=== PATIENT | female | born 1965 | race Caucasian/White ===

== ENCOUNTER 2019-07-13 09:59 | Inpatient (IN) | payer OTHER, BC ==
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
[~2019-07-13 09:59] MED LIST: Acetaminophen 325 MG Tab PO SCH; Bisacodyl 5 MG Tab PO PRN; Lactated Ringers 1,000 ML IV SCH; Lidocaine 1%/Sod Bicarbonate in NS 8.4% 1 ML Syringe IDERM PRN; Morphine 2 MG/ML SYRINGE IVPUSH PRN; Morphine 8 MG, EPINEPHrine 0.3 MG, Cefuroxime 750 MG, Ketorolac 30 MG, Sodium Chloride ... ONE; Naloxone 0.4 MG/ML SDV IVPUSH PRN; Ondansetron 4 MG/2 ML SDV IVPUSH PRN; Pregabalin 25 MG Cap PO SCH; Ropivacaine 0.5% 5 MG/ML 30 ML SDV ONE; Sodium Chloride 0.9% 10 ML Syringe FLUSH PRN; oxyCODONE ER 10 MG TAB.ER PO SCH
[2019-07-13] MEDS ORDERED: Ketorolac 30 MG/ML SDV ONE (10:49)
[2019-07-13] MEDS ORDERED: Propofol 200 MG/20 ML SDV ONE (10:49)
[2019-07-13] MEDS ORDERED: Lactated Ringers 1,000 ML ONE (10:49)
[2019-07-13] MEDS ORDERED: fentaNYL 100 MCG/2 ML SDV ONE (10:49)
[2019-07-13] MEDS ORDERED: Ondansetron 4 MG/2 ML SDV ONE (10:49)
[2019-07-13] MEDS ORDERED: Midazolam 1 MG/ML 2 ML SDV ONE ×2 (10:49→12:09)
[2019-07-13] MEDS ORDERED: ceFAZolin 1 GM Vial ONE ×2 (10:49→11:01)
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
[2019-07-13] MEDS ORDERED: Bupivacaine 0.25% 10 ML SDV ONE (11:01)
[2019-07-13] MEDS ORDERED: Iodine/Sodium Iodide 2% Tincture 30 ML Bottle ONE (11:01)
[2019-07-13] MEDS ORDERED: Vancomycin 1 GM SDV ONE (11:01)
[2019-07-13] MEDS ORDERED: Phenylephrine/Normal Saline 100 MCG/ML 10 ML Syringe ONE (12:52)
[2019-07-13] MEDS ORDERED: fentaNYL 100 MCG/2 ML SDV IVPUSH PRN (13:50)
--- NOTE | 2019-07-13 13:52 | PCM.POSTAN ---
POST ANESTHESIA ASSESSMENT - MENTAL STATUS Mental Status: Alert, Oriented - VITAL SIGNS Vital Signs: Last Vital Signs Temp 36.5 C 07/13/19 10:15 Pulse 78 07/13/19 10:15 Resp 16 07/13/19 10:15 BP 113/67 07/13/19 10:15 Pulse Ox 98 07/13/19 10:15 - RESPIRATORY Respiratory Status: Respiratory Rate WNL, Airway Patent, O2 Saturation Stable, Supplemental Oxygen - CARDIOVASCULAR CV Status: Pulse Rate WNL, Blood Pressure Stable - GASTROINTESTINAL GI Status: No Symptoms - PAIN Pain Score: 0 - POST OP HYDRATION Hydration Status: Adequate & Stable
--- NOTE | 2019-07-13 14:42 | PCM.SN ---
- Free Text/Narrative Note: Left selective femoral nerve block at the adductor canal for post-procedure pain control under US guidance requested by Dr. Martinez. Time Out: 1422 Start: 1422 End: 1428 Chart reviewed. Consent signed. Questions answered. Appropriate monitors applied. Time out performed. Left mid-shaft femur identified with ultrasound, scanning medially of femur, the femoral artery in the adductor canal visualized , and the femoral nerve located laterally to the artery. The skin was prepped lateral to the ultrasound probe with chlorahexadine times two. The 21ga 4 insulated block needle was inserted under direct ultrasound guidance into the adductor canal. 20mL of 0.5% ropivacaine with 1:200,000 epinephrine was injected circumferentially around the nerve with intermittent negative aspiration noted. Patient tolerated the procedure well. Sterile technique noted along with sterile gloves, mask, and sterile probe cover. See picture on progress note and vital signs on nurses notes. Block completed in PACU. Klever Benavidez CRNA
--- NOTE | 2019-07-13 15:30 | CR ---
Left knee: AP and lateral views of the left knee were obtained. Comparison: No prior left knee exam. Knee prosthesis is seen. Components are aligned. Soft tissue air is noted from surgical procedure. Underlying bony structures are intact. Slight deformity of the proximal fibula seen most likely due to old healed fracture. Impression: 1. Satisfactory postop radiographic appearance of recently placed left knee prosthesis. Diagnostic code #2 This report was dictated in [place] Standard Time
[2019-07-13] MEDS: Potassium Chloride 20 MEQ Tab.ER PO SCH ×2 (15:31→20:24)
[2019-07-13] MEDS ORDERED: Scopolamine 1.5 MG Transdermal Patch TOP ONE (15:35)
[2019-07-13] MEDS ORDERED: Ketorolac 15 MG/ML SDV IVPUSH PRN (17:00)
[2019-07-13] MEDS: Acetaminophen/oxyCODONE 325-5 MG Tab PO PRN (17:10)
[2019-07-13] MEDS: ceFAZolin 2 GM in Premix Bag 1 BAG IV SCH (18:24)
[2019-07-13] MEDS: Docusate Sodium 100 MG Cap PO SCH (20:25)
[2019-07-13] MEDS: Cyclobenzaprine 10 MG Tab PO PRN (20:47)
[2019-07-13] MEDS ORDERED: Famotidine 20 MG Tab PO SCH (21:00)
[2019-07-13] MEDS ORDERED: Sennosides 8.6 MG Tab PO PRN (21:00)
[2019-07-13] MEDS ORDERED: Magnesium Hydroxide 400 MG/5 ML Susp 30 ML Cup PO PRN (21:00)
[2019-07-14] MEDS: ceFAZolin 2 GM in Premix Bag 1 BAG IV SCH ×2 (03:47→10:14)
--- NOTE | 2019-07-14 07:02 | PCM.CONSN ---
- General Info Date of Service: 07/14/19 Admission Dx/Problem (Free Text): Admission Diagnosis/Problem Admission Diagnosis/Problem Osteoarthritis of knee Functional Status: Reports: Pain Controlled, Tolerating Diet, Ambulating, Urinating, Incentive Spirometry. Denies: New Symptoms - Review of Systems General: Reports: No Symptoms. Denies: Fever, Chills HEENT: Reports: No Symptoms. Denies: Headaches, Sore Throat Pulmonary: Reports: No Symptoms. Denies: Shortness of Breath, Cough, Sputum, Wheezing Cardiovascular: Reports: No Symptoms. Denies: Chest Pain, Palpitations Gastrointestinal: Reports: No Symptoms. Denies: Abdominal Pain, Constipation, Diarrhea, Nausea, Vomiting Genitourinary: Reports: No Symptoms. Denies: Pain Musculoskeletal: Reports: Leg Pain Skin: Reports: No Symptoms. Denies: Cyanosis Neurological: Reports: Difficulty Walking, Gait Disturbance. Denies: Confusion , Pre-Existing Deficit Psychiatric: Reports: No Symptoms - Patient Data Vitals - Most Recent: Last Vital Signs Temp 97.6 F 07/13/19 14:40 Pulse 70 07/13/19 18:17 Resp 17 07/13/19 14:40 BP 114/69 07/13/19 18:17 Pulse Ox 100 07/13/19 18:17 Weight - Most Recent: 209 lb 6.4 oz I&O - Last 24 Hours: Intake & Output 07/13/19 07/14/19 07/14/19 22:59 06:59 14:59 Intake Total 320 500 Output Total 225 Balance 320 275 Lab Results Last 24 Hours: Laboratory Results - last 24 hr 07/13/19 07/13/19 07/14/19 Range/Units 10:45 10:46 00:00 WBC (3.98-10.04) K/mm3 RBC (3.98-5.22) M/mm3 Hgb (11.2-15.7) gm/dl Hct (34.1-44.9) % MCV (79.4-94.8) fl MCH (25.6-32.2) pg MCHC (32.2-35.5) g/dl RDW Std Deviation (36.4-46.3) fL Plt Count (182-369) K/mm3 MPV (9.4-12.3) fl APTT 23 (22-31) SECONDS POC Glucose 98 148 H (70-105) mg/dL 07/14/19 Range/Units 05:25 WBC 9.85 (3.98-10.04) K/mm3 RBC 4.22 (3.98-5.22) M/mm3 Hgb 13.0 (11.2-15.7) gm/dl Hct 39.9 (34.1-44.9) % MCV 94.5 (79.4-94.8) fl MCH 30.8 (25.6-32.2) pg MCHC 32.6 (32.2-35.5) g/dl RDW Std Deviation 44.3 (36.4-46.3) fL Plt Count 220 (182-369) K/mm3 MPV 10.4 (9.4-12.3) fl APTT (22-31) SECONDS POC Glucose (70-105) mg/dL Med Orders - Current: Current Medications Bisacodyl (Dulcolax) 5 mg PO DAILY PRN PRN Reason: Constipation Cholecalciferol (Vitamin D3) 5,000 unit PO DAILY [facility] Cyclobenzaprine HCl (Flexeril) 10 mg PO TID PRN PRN Reason: Spasms Last Admin: 07/13/19 20:47 Dose: 10 mg Docusate Sodium (Colace) 100 mg PO BID [facility] Last Admin: 07/13/19 20:25 Dose: 100 mg Famotidine (Pepcid) 20 mg PO Q12H [facility] Last Admin: 07/13/19 20:25 Dose: 20 mg Cefazolin Sodium/Dextrose 2 gm (/ Premix) 50 mls @ 100 mls/hr IV Q8H [facility] Stop: 07/14/19 11:29 Last Admin: 07/14/19 03:47 Dose: 100 mls/hr Ketorolac Tromethamine (Toradol) 15 mg IVPUSH Q6H PRN PRN Reason: Pain Last Admin: 07/13/19 23:26 Dose: 15 mg Magnesium Hydroxide (Milk Of Magnesia) 30 ml PO BID PRN PRN Reason: Constipation Miscellaneous Information (Remove Patch) 0 ea TRDERM ONETIME ONE Stop: 07/16/19 15:46 Morphine Sulfate (Morphine) 2 mg IVPUSH Q2H PRN PRN Reason: Breakthrough Pain Naloxone HCl (Narcan) 0.1 mg IVPUSH Q5M PRN PRN Reason: Oversedation Ondansetron HCl (Zofran) 4 mg IVPUSH Q6H PRN PRN Reason: Nausea/Vomiting Oxycodone/Acetaminophen (Percocet 325-5 Mg) 1 - 2 tab PO Q4H PRN PRN Reason: Pain Last Admin: 07/13/19 17:10 Dose: 1 tab Lidocaine/Prilocaine (Cream) 0 each TOP TID PRN PRN Reason: Pain Potassium Chloride (Klor-Con M20) 20 meq PO TID [facility] Last Admin: 07/13/19 20:24 Dose: 20 meq Rivaroxaban (Xarelto) 10 mg PO DAILY [facility] Senna (Senna) 8.6 mg PO BID PRN PRN Reason: Constipation Discontinued Medications Acetaminophen (Tylenol) 975 mg PO ONETIME [facility] Stop: 07/13/19 12:00 Last Admin: 07/13/19 10:38 Dose: 975 mg Bupivacaine HCl (Sensorcaine-Mpf 0.25%) Confirm Administered Dose 30 ml .ROUTE .STK-MED ONE Stop: 07/13/19 11:02 Last Admin: 07/13/19 13:08 Dose: 30 ml Cefazolin Sodium (Ancef) Confirm Administered Dose 2 gm .ROUTE .STK-MED ONE Stop: 07/13/19 10:50 Last Admin: 07/13/19 13:05 Dose: 2 gm Cefazolin Sodium (Ancef) Confirm Administered Dose 2 gm .ROUTE .STK-MED ONE Stop: 07/13/19 11:02 Morphine Sulfate 8 mg/Epinephrine HCl 0.3 mg/Cefuroxime Sodium 750 mg/Ketorolac Tromethamine 30 mg/Sodium Chloride 27.9 ml 0 mg .XX ONETIME ONE Stop: 07/13/19 09:01 Last Admin: 07/13/19 13:08 Dose: 788.3 mg Fentanyl (Sublimaze) Confirm Administered Dose 100 mcg .ROUTE .STK-MED ONE Stop: 07/13/19 10:50 Fentanyl (Sublimaze) 50 mcg IVPUSH Q5M PRN PRN Reason: pain Stop: 07/13/19 15:00 Lactated Ringer's (Ringers, Lactated) 1,000 mls @ 125 mls/hr IV ASDIRECTED [facility] Stop: 07/13/19 23:00 Last Admin: 07/13/19 11:13 Dose: 125 mls/hr Lactated Ringer's (Ringers, Lactated) Confirm Administered Dose 1,000 mls @ as directed .ROUTE .[facility]-MED ONE Stop: 07/13/19 10:50 Iodine (Iodine 2% Mild Tincture) Confirm Administered Dose 30 ml .ROUTE .[facility]- MED ONE Stop: 07/13/19 11:02 Last Admin: 07/13/19 13:03 Dose: 18 ml Ketorolac Tromethamine (Toradol) Confirm Administered Dose 30 mg .ROUTE .ST- MED ONE Stop: 07/13/19 10:50 Lidocaine/Sodium Bicarbonate (Buffered Lidocaine 1% In Ns 8.4%) 0.25 ml IDERM ONETIME PRN PRN Reason: Prior to IV Start Stop: 07/13/19 18:00 Last Admin: 07/13/19 11:13 Dose: 0.25 ml Midazolam HCl (Versed 1 Mg/Ml) Confirm Administered Dose 2 mg .ROUTE .[facility]-MED ONE Stop: 07/13/19 10:50 Midazolam HCl (Versed 1 Mg/Ml) Confirm Administered Dose 2 mg .ROUTE .ST-MED ONE Stop: 07/13/19 12:10 Ondansetron HCl (Zofran) Confirm Administered Dose 4 mg .ROUTE .ST-MED ONE Stop: 07/13/19 10:50 Oxycodone HCl (Oxycontin) 10 mg PO ONETIME [facility] Stop: 07/13/19 12:00 Last Admin: 07/13/19 10:38 Dose: 10 mg Phenylephrine HCl (Phenylephrine In Ns 100 Mcg/Ml) Confirm Administered Dose 1 mg .ROUTE .ST-MED ONE Stop: 07/13/19 12:53 Pregabalin (Lyrica) 50 mg PO ONETIME [facility] Stop: 07/13/19 12:00 Last Admin: 07/13/19 10:39 Dose: 50 mg Propofol (Diprivan 20 Ml) Confirm Administered Dose 600 mg .ROUTE .ST-MED ONE Stop: 07/13/19 10:50 Ropivacaine (Naropin 0.5%) Confirm Administered Dose 30 ml .ROUTE .ST-MED ONE Stop: 07/13/19 07:56 Scopolamine (Transderm-Scop) 1.5 mg TOP ONETIME ONE Stop: 07/13/19 15:36 Last Admin: 07/13/19 15:42 Dose: 1.5 mg Sodium Chloride (Saline Flush) 10 ml FLUSH ASDIRECTED PRN PRN Reason: Keep Vein Open Stop: 07/13/19 18:00 Tranexamic Acid (Cyklokapron) Confirm Administered Dose 1,000 mg .ROUTE .STK- MED ONE Stop: 07/13/19 11:02 Last Admin: 07/13/19 13:14 Dose: 1,000 mg Vancomycin HCl (Vancomycin) Confirm Administered Dose 1 gm .ROUTE .STK-MED ONE Stop: 07/13/19 11:02 Last Admin: 07/13/19 13:11 Dose: 1 gm - Exam Quality Assessment: DVT Prophylaxis. No: Supplemental Oxygen, Urine Catheter General: Alert, Oriented, Cooperative HEENT: Pupils Equal, Pupils Reactive, Mucous Membr. Moist/[place]anquillity Neck: Supple, Trachea Midline Lungs: Clear to Auscultation, Normal Respiratory Effort Cardiovascular: Regular Rate, Regular Rhythm GI/Abdominal Exam: Normal Bowel Sounds, Soft, Non-Tender, No Distention, No Abnormal Bruit (Female) Exam: Deferred Back Exam: Normal Inspection, Full Range of Motion Extremities: Normal Capillary Refill, Leg Pain, Limited Range of Motion, Other ( Bandage in place on left leg. Coolng pack in place. ) Peripheral Pulses: 2+: Radial (L), Radial (R), Dorsalis Pedis (L), Dorsalis Pedis (R) Skin: Warm, Dry, Intact Wound/Incisions: Dressing Dry and Intact Neurological: No New Focal Deficit Psy/Mental Status: Alert, Normal Affect, Normal Mood Sepsis Event Note - Evaluation Sepsis Screening Result: No Definite Risk Consult PN Assessment/Plan POD#: 1 Procedures: Procedures ANTI-PHOSPHOLIPID ANTIBODY (01/19/15) ANTITHROMBIN III ANTIGEN (01/19/15) ASSAY GLUCOSE BLOOD QUANT (03/09/16) ASSAY OF ESTRADIOL (09/24/17) ASSAY OF GONADOTROPIN (FSH) (09/24/17) ASSAY OF PREALBUMIN (06/22/19) ASSAY OF SERUM ALBUMIN (06/22/19) ASSAY OF SERUM POTASSIUM (12/22/14) ASSAY THYROID STIM HORMONE (02/10/19) BETA-2 GLYCOPROTEIN ANTIBODY (01/19/15) C-REACTIVE PROTEIN (09/03/16) KIRA DNA DIR PROBE (12/03/17) CARDIOLIPIN ANTIBODY EA IG (01/19/15) COLONOSCOPY AND BIOPSY (10/12/14) COLONOSCOPY W/LESION REMOVAL (06/09/15) COMP SCREEN MAMMOGRAM ADD-ON (10/10/15) COMPLETE CBC W/AUTO DIFF WBC (06/22/19) COMPREHEN METABOLIC PANEL (02/10/19) CT ABD & PELV W/CONTRAST (05/03/15) CULTURE AEROBIC IDENTIFY (04/16/17) CULTURE OTHR SPECIMN AEROBIC (06/22/19) DIAGNOSTIC COLONOSCOPY (02/05/17) EMERGENCY DEPT VISIT (08/26/16) EXTREMITY STUDY (05/03/15) F2 GENE (01/19/15) F5 GENE (01/19/15) MACK VAG DNA DIR PROBE (12/03/17) GLYCOSYLATED HEMOGLOBIN TEST (06/22/19) JAK2 GENE (01/19/15) KNEE ARTHROSCOPY/SURGERY (12/24/18) LIPID PANEL (02/10/19) METABOLIC PANEL TOTAL CA (06/22/19) MICROBE SUSCEPTIBLE NIESHA (04/16/17) OT EVALUATION (11/23/15) PROTHROMBIN TIME (06/22/19) REDUCTION OF LARGE BREAST (07/27/16) ROUTINE VENIPUNCTURE (06/22/19) SCR MAMMO BI INCL CAD (08/14/18) TISSUE EXAM BY PATHOLOGIST (10/12/14) TRICHOMONAS VAGIN DIR PROBE (12/03/17) URINALYSIS AUTO W/SCOPE (03/30/19) URINE BACTERIA CULTURE (04/16/17) URINE CULTURE/COLONY COUNT (03/30/19) US EXAM ABDO BACK WALL BEE (12/07/13) X-RAY EXAM CHEST 2 VIEWS (06/22/19) X-RAY EXAM KNEE 4 OR MORE (09/27/15) X-RAY EXAM OF KNEE 1 OR 2 (02/11/18) X-RAY EXAM OF KNEE 3 (06/05/17) X-RAY EXAM OF LOWER LEG (05/23/15) X-RAY EXAM THORAC SPINE 3VWS (11/09/16) (1) S/P total knee arthroplasty SNOMED Code(s): 0506539473272, 619879937, 4781075996133 Code(s): Z96.659 - PRESENCE OF UNSPECIFIED ARTIFICIAL KNEE JOINT Priority: High Current Visit: Yes Qualifiers: Laterality: left Qualified Code(s): Z96.652 - Presence of left artificial knee joint (2) Osteoarthritis SNOMED Code(s): 713764759 Code(s): M19.90 - UNSPECIFIED OSTEOARTHRITIS, UNSPECIFIED SITE Priority: High Current Visit: Yes Qualifiers: Osteoarthritis location: knee Osteoarthritis type: primary Laterality: left Qualified Code(s): M17.12 - Unilateral primary osteoarthritis, left knee (3) HTN (hypertension) SNOMED Code(s): 70749902 Code(s): I10 - ESSENTIAL (PRIMARY) HYPERTENSION Priority: Medium Current Visit: No Qualifiers: Hypertension type: unspecified Qualified Code(s): I10 - Essential (primary ) hypertension (4) Obesity (BMI 30.0-34.9) SNOMED Code(s): 093846845474253 Code(s): E66.9 - OBESITY, UNSPECIFIED Priority: Low Current Visit: No (5) RLS (restless legs syndrome) SNOMED Code(s): 33259734 Code(s): G25.81 - RESTLESS LEGS SYNDROME Priority: Medium Current Visit: No (6) Memory changes SNOMED Code(s): 952924443 Code(s): R41.3 - OTHER AMNESIA Priority: Low Current Visit: No (7) Pre-diabetes SNOMED Code(s): 780475926 Code(s): R73.03 - PREDIABETES Priority: Medium Current Visit: No (8) History of DVT (deep vein thrombosis) SNOMED Code(s): 441054227 Code(s): Z86.718 - PERSONAL HISTORY OF OTHER VENOUS THROMBOSIS AND EMBOLISM Priority: Low Current Visit: No (9) Complex regional pain syndrome affecting both upper arms SNOMED Code(s): 229851418, 073982090 Code(s): G90.513 - COMPLEX REGIONAL PAIN SYNDROME I OF UPPER LIMB, BILATERAL Priority: Medium Current Visit: No (10) Hypokalemia SNOMED Code(s): 95748855 Code(s): E87.6 - HYPOKALEMIA Priority: Low Current Visit: No (11) Edema SNOMED Code(s): 192618352, 183084948 Code(s): R60.9 - EDEMA, UNSPECIFIED Priority: Medium Current Visit: No Qualifiers: Edema type: unspecified Qualified Code(s): R60.9 - Edema, unspecified (12) Insomnia SNOMED Code(s): 141614940 Code(s): G47.00 - INSOMNIA, UNSPECIFIED Priority: Medium Current Visit: No Qualifiers: Insomnia type: unspecified Qualified Code(s): G47.00 - Insomnia, unspecified (13) Recurrent UTI SNOMED Code(s): 467340402 Code(s): N39.0 - URINARY TRACT INFECTION, SITE NOT SPECIFIED Priority: Low Current Visit: No (14) Peripheral neuropathy SNOMED Code(s): 921689352 Code(s): G62.9 - POLYNEUROPATHY, UNSPECIFIED Priority: Low Current Visit : No Qualifiers: Peripheral neuropathy type: polyneuropathy, unspecified Qualified Code(s): G62.9 - Polyneuropathy, unspecified Problem List Initiated/Reviewed/Updated: Yes Plan: I/P: Acute: S/P left total knee arthroplasty - post-operative day 1 -DVT prophylaxis and pain management per primary care team -PT/OT -IS/RT -Monitor oxygen saturation -Titrate oxygen as needed -Home medications reviewed -Vital signs stable -Monitor labs -Pre-operative Hgb was 14.3; Now 13.0 -Pre-operative GFR was 57.6; Now 58 -Pre-operative potassium was 3.4; Now 4.0 -Pre-operative A1C was 6.27% Osteoarthritis of left knee -Pain management per primary care team Chronic: HTN Obesity RLS Memory changes Abdominal thrombus Pre-DM DVT Chronic regional pain syndrome of the upper extremities Hypokalemia Right lower extremity edema OA Insomnia abnormal gait cholelithiasis recurrent UTIs peripheral neuropathy Plan: CM for discharge planning GI prophylaxis Home medications as indicated Other orders as listed above Routine AM labs She is a full code. Her PCP is Pamela Hanna PA-C From a hospitalist standpoint Cindy is doing well. She has been up ambulating and working with therapies. She is off of oxygen and has urinated. She has been utilizing her IS. Her labs and vital signs remain stable. She has been eating without difficulty. She is cleared for discharge pending primary team and PT/OT agreement. Thank you for allowing us to participate in the care of this patient!!
--- NOTE | 2019-07-14 07:16 | PCM.SURGPN ---
- General Info Date of Service: 07/14/19 POD#: 1 Functional Status: Reports: Pain Controlled, Tolerating Diet, Ambulating, Urinating, Incentive Spirometry, Other (The pt states she notes a popping sensation at posterolateral left knee with ambulation.) - Patient Data Vitals - Most Recent: Last Vital Signs Temp 97.6 F 07/13/19 14:40 Pulse 70 07/13/19 18:17 Resp 17 07/13/19 14:40 BP 114/69 07/13/19 18:17 Pulse Ox 100 07/13/19 18:17 Weight - Most Recent: 209 lb 6.4 oz I&O - Last 24 Hours: Intake & Output 07/13/19 07/14/19 07/14/19 22:59 06:59 14:59 Intake Total 320 500 Output Total 225 Balance 320 275 Lab Results Last 24 Hrs: Laboratory Results - last 24 hr 07/13/19 07/13/19 07/14/19 Range/Units 10:45 10:46 00:00 WBC (3.98-10.04) K/mm3 RBC (3.98-5.22) M/mm3 Hgb (11.2-15.7) gm/dl Hct (34.1-44.9) % MCV (79.4-94.8) fl MCH (25.6-32.2) pg MCHC (32.2-35.5) g/dl RDW Std Deviation (36.4-46.3) fL Plt Count (182-369) K/mm3 MPV (9.4-12.3) fl APTT 23 (22-31) SECONDS Sodium (136-145) mEq/L Potassium (3.5-5.1) mEq/L Chloride (98-107) mEq/L Carbon Dioxide (21-32) mEq/L Anion Gap (5-15) BUN (7-18) mg/dL Creatinine (0.55-1.02) mg/dL Est Cr Clr Drug Dosing mL/min Estimated GFR (MDRD) (>60) mL/min BUN/Creatinine Ratio (14-18) Glucose (74-106) mg/dL POC Glucose 98 148 H (70-105) mg/dL Calcium (8.5-10.1) mg/dL Total Bilirubin (0.2-1.0) mg/dL AST (15-37) U/L ALT (14-59) U/L Alkaline Phosphatase (46-116) U/L Total Protein (6.4-8.2) g/dl Albumin (3.4-5.0) g/dl Globulin gm/dL Albumin/Globulin Ratio (1-2) 07/14/19 07/14/19 Range/Units 05:25 05:25 WBC 9.85 (3.98-10.04) K/mm3 RBC 4.22 (3.98-5.22) M/mm3 Hgb 13.0 (11.2-15.7) gm/dl Hct 39.9 (34.1-44.9) % MCV 94.5 (79.4-94.8) fl MCH 30.8 (25.6-32.2) pg MCHC 32.6 (32.2-35.5) g/dl RDW Std Deviation 44.3 (36.4-46.3) fL Plt Count 220 (182-369) K/mm3 MPV 10.4 (9.4-12.3) fl APTT (22-31) SECONDS Sodium 139 (136-145) mEq/L Potassium 4.0 (3.5-5.1) mEq/L Chloride 103 (98-107) mEq/L Carbon Dioxide 29 (21-32) mEq/L Anion Gap 11.0 (5-15) BUN 19 H (7-18) mg/dL Creatinine 1.0 (0.55-1.02) mg/dL Est Cr Clr Drug Dosing 59.51 mL/min Estimated GFR (MDRD) 58 (>60) mL/min BUN/Creatinine Ratio 19.0 H (14-18) Glucose 124 H (74-106) mg/dL POC Glucose (70-105) mg/dL Calcium 8.5 (8.5-10.1) mg/dL Total Bilirubin 0.4 (0.2-1.0) mg/dL AST 24 (15-37) U/L ALT 27 (14-59) U/L Alkaline Phosphatase 60 (46-116) U/L Total Protein 5.9 L (6.4-8.2) g/dl Albumin 3.1 L (3.4-5.0) g/dl Globulin 2.8 gm/dL Albumin/Globulin Ratio 1.1 (1-2) Med Orders - Current: Current Medications Bisacodyl (Dulcolax) 5 mg PO DAILY PRN PRN Reason: Constipation Cholecalciferol (Vitamin D3) 5,000 unit PO DAILY [facility] Cyclobenzaprine HCl (Flexeril) 10 mg PO TID PRN PRN Reason: Spasms Last Admin: 07/13/19 20:47 Dose: 10 mg Docusate Sodium (Colace) 100 mg PO BID [facility] Last Admin: 07/13/19 20:25 Dose: 100 mg Famotidine (Pepcid) 20 mg PO Q12H [facility] Last Admin: 07/13/19 20:25 Dose: 20 mg Cefazolin Sodium/Dextrose 2 gm (/ Premix) 50 mls @ 100 mls/hr IV Q8H [facility] Stop: 07/14/19 11:29 Last Admin: 07/14/19 03:47 Dose: 100 mls/hr Ketorolac Tromethamine (Toradol) 15 mg IVPUSH Q6H PRN PRN Reason: Pain Last Admin: 07/13/19 23:26 Dose: 15 mg Magnesium Hydroxide (Milk Of Magnesia) 30 ml PO BID PRN PRN Reason: Constipation Miscellaneous Information (Remove Patch) 0 ea TRDERM ONETIME ONE Stop: 07/16/19 15:46 Morphine Sulfate (Morphine) 2 mg IVPUSH Q2H PRN PRN Reason: Breakthrough Pain Naloxone HCl (Narcan) 0.1 mg IVPUSH Q5M PRN PRN Reason: Oversedation Ondansetron HCl (Zofran) 4 mg IVPUSH Q6H PRN PRN Reason: Nausea/Vomiting Oxycodone/Acetaminophen (Percocet 325-5 Mg) 1 - 2 tab PO Q4H PRN PRN Reason: Pain Last Admin: 07/13/19 17:10 Dose: 1 tab Lidocaine/Prilocaine (Cream) 0 each TOP TID PRN PRN Reason: Pain Potassium Chloride (Klor-Con M20) 20 meq PO TID [facility] Last Admin: 07/13/19 20:24 Dose: 20 meq Rivaroxaban (Xarelto) 10 mg PO DAILY [facility] Senna (Senna) 8.6 mg PO BID PRN PRN Reason: Constipation Discontinued Medications Acetaminophen (Tylenol) 975 mg PO ONETIME [facility] Stop: 07/13/19 12:00 Last Admin: 07/13/19 10:38 Dose: 975 mg Bupivacaine HCl (Sensorcaine-Mpf 0.25%) Confirm Administered Dose 30 ml .ROUTE .STK-MED ONE Stop: 07/13/19 11:02 Last Admin: 07/13/19 13:08 Dose: 30 ml Cefazolin Sodium (Ancef) Confirm Administered Dose 2 gm .ROUTE .STK-MED ONE Stop: 07/13/19 10:50 Last Admin: 07/13/19 13:05 Dose: 2 gm Cefazolin Sodium (Ancef) Confirm Administered Dose 2 gm .ROUTE .STK-MED ONE Stop: 07/13/19 11:02 Morphine Sulfate 8 mg/Epinephrine HCl 0.3 mg/Cefuroxime Sodium 750 mg/Ketorolac Tromethamine 30 mg/Sodium Chloride 27.9 ml 0 mg .XX ONETIME ONE Stop: 07/13/19 09:01 Last Admin: 07/13/19 13:08 Dose: 788.3 mg Fentanyl (Sublimaze) Confirm Administered Dose 100 mcg .ROUTE .ST-MED ONE Stop: 07/13/19 10:50 Fentanyl (Sublimaze) 50 mcg IVPUSH Q5M PRN PRN Reason: pain Stop: 07/13/19 15:00 Lactated Ringer's (Ringers, Lactated) 1,000 mls @ 125 mls/hr IV ASDIRECTED [facility] Stop: 07/13/19 23:00 Last Admin: 07/13/19 11:13 Dose: 125 mls/hr Lactated Ringer's (Ringers, Lactated) Confirm Administered Dose 1,000 mls @ as directed .ROUTE .STK-MED ONE Stop: 07/13/19 10:50 Iodine (Iodine 2% Mild Tincture) Confirm Administered Dose 30 ml .ROUTE .STK- MED ONE Stop: 07/13/19 11:02 Last Admin: 07/13/19 13:03 Dose: 18 ml Ketorolac Tromethamine (Toradol) Confirm Administered Dose 30 mg .ROUTE .STK- MED ONE Stop: 07/13/19 10:50 Lidocaine/Sodium Bicarbonate (Buffered Lidocaine 1% In Ns 8.4%) 0.25 ml IDERM ONETIME PRN PRN Reason: Prior to IV Start Stop: 07/13/19 18:00 Last Admin: 07/13/19 11:13 Dose: 0.25 ml Midazolam HCl (Versed 1 Mg/Ml) Confirm Administered Dose 2 mg .ROUTE .STK-MED ONE Stop: 07/13/19 10:50 Midazolam HCl (Versed 1 Mg/Ml) Confirm Administered Dose 2 mg .ROUTE .STK-MED ONE Stop: 07/13/19 12:10 Ondansetron HCl (Zofran) Confirm Administered Dose 4 mg .ROUTE .STK-MED ONE Stop: 07/13/19 10:50 Oxycodone HCl (Oxycontin) 10 mg PO ONETIME [facility] Stop: 07/13/19 12:00 Last Admin: 07/13/19 10:38 Dose: 10 mg Phenylephrine HCl (Phenylephrine In Ns 100 Mcg/Ml) Confirm Administered Dose 1 mg .ROUTE .STK-MED ONE Stop: 07/13/19 12:53 Pregabalin (Lyrica) 50 mg PO ONETIME [facility] Stop: 07/13/19 12:00 Last Admin: 07/13/19 10:39 Dose: 50 mg Propofol (Diprivan 20 Ml) Confirm Administered Dose 600 mg .ROUTE .STK-MED ONE Stop: 07/13/19 10:50 Ropivacaine (Naropin 0.5%) Confirm Administered Dose 30 ml .ROUTE .STK-MED ONE Stop: 07/13/19 07:56 Scopolamine (Transderm-Scop) 1.5 mg TOP ONETIME ONE Stop: 07/13/19 15:36 Last Admin: 07/13/19 15:42 Dose: 1.5 mg Sodium Chloride (Saline Flush) 10 ml FLUSH ASDIRECTED PRN PRN Reason: Keep Vein Open Stop: 07/13/19 18:00 Tranexamic Acid (Cyklokapron) Confirm Administered Dose 1,000 mg .ROUTE .STK- MED ONE Stop: 07/13/19 11:02 Last Admin: 07/13/19 13:14 Dose: 1,000 mg Vancomycin HCl (Vancomycin) Confirm Administered Dose 1 gm .ROUTE .STK-MED ONE Stop: 07/13/19 11:02 Last Admin: 07/13/19 13:11 Dose: 1 gm - Exam Wound/Incisions: Dressing Dry and Intact General: Alert, Cooperative, No Acute Distress Lungs: Normal Respiratory Effort Extremities: Other (Pt was able to sense touch at LLE. Kurtis's sign negative for BLE. No popping, clicking noted at left knee at time of examination today.) Sepsis Event Note - Evaluation Sepsis Screening Result: No Definite Risk - Problem List Review Problem List Initiated/Reviewed/Updated: Yes - My Orders Last 24 Hours: Active Orders 24 hr Category Date Time Status Patient Status [ADT] Routine ADT 07/13/19 07:00 Active Ambulate [RC] PER UNIT ROUTINE Care 07/13/19 07:00 Active Antiembolic Devices [RC] BID Care 07/13/19 06:59 Active Blood Glucose Check, Bedside [RC] QIDACANDBED Care 07/13/19 07:00 Active Communication Order [RC] ROUTINE Care 07/13/19 13:50 Active Cooling Warming Measures [RC] ASDIRECTED Care 07/13/19 13:50 Inactive May Shower [RC] ASDIRECTED Care 07/13/19 07:00 Active Notify Provider Consults [RC] ASDIRECTED Care 07/13/19 07:04 Active Notify Provider [RC] ASDIRECTED Care 07/13/19 13:50 Active Oxygen Therapy [RC] PRN Care 07/13/19 07:00 Active Pulse Oximetry [RC] ASDIRECTED Care 07/13/19 13:50 Active RT Incentive Spirometry [RC] Q1HWA Care 07/13/19 06:58 Active Ready for Discharge [RC] PER UNIT ROUTINE Care 07/14/19 07:14 Ordered Up to Chair [RC] ASDIRECTED Care 07/13/19 07:00 Active Urinary Catheter Removal [RC] Per Unit Routine Care 07/13/19 06:58 Active Consult to Physician [CONS] Routine Cons 07/13/19 07:00 Active OT Evaluation and Treatment [CONS] Routine Cons 07/13/19 06:58 Active PT Evaluation and Treatment [CONS] Routine Cons 07/13/19 06:58 Active Regular Diet [DIET] Diet 07/13/19 Lunch Active Acetaminophen/oxyCODONE [Percocet 325-5 MG] Med 07/13/19 06:58 Active 1 - 2 tab PO Q4H PRN Cholecalciferol (Vitamin D3) [Vitamin D3] Med 07/14/19 09:00 Active 5,000 unit PO DAILY Cyclobenzaprine [Flexeril] Med 07/13/19 15:00 Active 10 mg PO TID PRN Docusate Sodium [Colace] Med 07/13/19 21:00 Active 100 mg PO BID Famotidine [Pepcid] Med 07/13/19 21:00 Active 20 mg PO Q12H Ketorolac [Toradol] Med 07/13/19 17:00 Active 15 mg IVPUSH Q6H PRN Magnesium Hydroxide [Milk of Magnesia] Med 07/13/19 21:00 Active 30 ml PO BID PRN Morphine Med 07/13/19 07:00 Active 2 mg IVPUSH Q2H PRN Naloxone [Narcan] Med 07/13/19 07:00 Active 0.1 mg IVPUSH Q5M PRN Ondansetron [Zofran] Med 07/13/19 07:00 Active 4 mg IVPUSH Q6H PRN Patient's Own Medication [Ptom] Med 07/13/19 13:55 Active 0 each TOP TID PRN Potassium Chloride [Klor-Con M20] Med 07/13/19 15:00 Active 20 meq PO TID Remove Patch Med 07/16/19 15:45 Once 0 ea TRDERM ONETIME ONE Rivaroxaban [Xarelto] Med 07/14/19 09:00 Active 10 mg PO DAILY Sennosides [Senna] Med 07/13/19 21:00 Active 8.6 mg PO BID PRN bisacodyL [Dulcolax] Med 07/13/19 07:00 Active 5 mg PO DAILY PRN ceFAZolin [Ancef] 2 gm Med 07/13/19 19:00 Active Premix Bag 1 bag IV Q8H Antiembolic Hose [OM.PC] Per Unit Routine Oth 07/13/19 07:01 Ordered Ice Therapy [OM.PC] Per Unit Routine Oth 07/13/19 07:01 Ordered Sequential Compression Device [OM.PC] Per Unit Routine Oth 07/13/19 06:58 Ordered Resuscitation Status Routine Resus Stat 07/13/19 07:00 Ordered Medication Orders Bisacodyl (Dulcolax) 5 mg PO DAILY PRN PRN Reason: Constipation Cholecalciferol (Vitamin D3) 5,000 unit PO DAILY [facility] Cyclobenzaprine HCl (Flexeril) 10 mg PO TID PRN PRN Reason: Spasms Last Admin: 07/13/19 20:47 Dose: 10 mg Docusate Sodium (Colace) 100 mg PO BID [facility] Last Admin: 07/13/19 20:25 Dose: 100 mg Famotidine (Pepcid) 20 mg PO Q12H [facility] Last Admin: 07/13/19 20:25 Dose: 20 mg Cefazolin Sodium/Dextrose 2 gm (/ Premix) 50 mls @ 100 mls/hr IV Q8H [facility] Stop: 07/14/19 11:29 Last Admin: 07/14/19 03:47 Dose: 100 mls/hr Infusion: 07/13/19 18:54 Dose: 100 mls/hr Admin: 07/13/19 18:24 Dose: 100 mls/hr Ketorolac Tromethamine (Toradol) 15 mg IVPUSH Q6H PRN PRN Reason: Pain Last Admin: 07/13/19 23:26 Dose: 15 mg Magnesium Hydroxide (Milk Of Magnesia) 30 ml PO BID PRN PRN Reason: Constipation Miscellaneous Information (Remove Patch) 0 ea TRDERM ONETIME ONE Stop: 07/16/19 15:46 Morphine Sulfate (Morphine) 2 mg IVPUSH Q2H PRN PRN Reason: Breakthrough Pain Naloxone HCl (Narcan) 0.1 mg IVPUSH Q5M PRN PRN Reason: Oversedation Ondansetron HCl (Zofran) 4 mg IVPUSH Q6H PRN PRN Reason: Nausea/Vomiting Oxycodone/Acetaminophen (Percocet 325-5 Mg) 1 - 2 tab PO Q4H PRN PRN Reason: Pain Last Admin: 07/13/19 17:10 Dose: 1 tab Lidocaine/Prilocaine (Cream) 0 each TOP TID PRN PRN Reason: Pain Potassium Chloride (Klor-Con M20) 20 meq PO TID [facility] Last Admin: 07/13/19 20:24 Dose: 20 meq Admin: 07/13/19 15:31 Dose: 20 meq Rivaroxaban (Xarelto) 10 mg PO DAILY [facility] Senna (Senna) 8.6 mg PO BID PRN PRN Reason: Constipation - Assessment Assessment (Free Text/Narrative):: POD#1 - left TKA - Plan Plan (Free Text/Narrative):: 1. Discharge to home today if cleared by Hospitalist service and therapies. 2. Xarelto (personal hx abdominal thrombosis), frequent mobility, TEDs. 3. Outpatient therapy. 4. Hgb 13.0 today. The pt's case was discussed with Dr. Martinez.
--- NOTE | 2019-07-14 08:17 | PCM.DCSUM1 ---
Discharge Summary - Hospital Course Brief History: Cindy is a 53 yo female who underwent left TKA with Dr. Martinez on 07-13-2019. The procedure was completed under spinal anesthesia with sedation. The pt tolerated the procedure well and was admitted to the Medical- Surgical Unit. Medical management was provided by the Hospitalist service. The pt's Hospital course was uneventful. The pt's Hgb on POD#1 was 13.0. On POD#1, Xarelto 10mg PO daily was initiated for VTE prophylaxis. SCDs and TEDs were also ordered. A Mepilex dressing was placed at the incision site at the time of surgery and remained clean and dry. The pt participated in P.T. and O.T. and progressed well. The pt was allowed to WBAT and used a FWW for mobility. On POD#1, the pt was deemed appropriate to discharge to home. - Discharge Data Discharge Date: 07/14/19 Discharge Disposition: Home, Self-Care 01 Condition: Good - Referral to Home Health Primary Care Physician: Lou Blum MD - Patient Summary/Data Consults: Consultations 07/13/19 06:58 OT Evaluation and Treatment [CONS] Routine PT Evaluation and Treatment [CONS] Routine 07/13/19 07:00 Consult to Physician [CONS] Routine - Patient Instructions Diet: Usual Diet as Tolerated Activity: Apply Ice, As Tolerated, Elevate Extremity, Full Weight Bearing Driving: Do Not Drive Showering/Bathing: May Shower Wound/Incision Care: Keep Operative Site/Wound Site Clean and Dry, Do NOT Change Dressing Notify Provider of: Fever, Increased Pain, Swelling and Redness, Drainage, Nausea and/or Vomiting Other/Special Instructions: Please get up and moving around EVERY HOUR while awake. This helps to prevent blood clots. Please use your walker and have help with mobility as needed. Take a short walk in your home every hour while awake. Please take the Xarelto blood thinner medication daily as directed. At home, please complete the exercises that you learned during the Hospital stay. Schedule for physical therapy. Use the pain medication as needed. The medication may cause drowsiness and constipation. Contact your primary care provider for instructions if you are constipated. You may use a stool softener like docusate sodium or Colace 100mg twice daily and/or a laxative like Miralax daily for constipation. Increase your water and fiber intake while you are using the pain medication. Discontinue use of the pain medication as soon as able. Please do not use other medications that may cause drowsiness (other pain medications, anxiety pills, cold medications, sleeping pills, etc) while using the prescription pain medication. Do not use alcohol while using the pain medication. You may use acetaminophen or Tylenol for pain management, however, please ensure you are not using over 4000 mg or 4 grams of acetaminophen per day from all sources. Your pain medication has 325mg of acetaminophen per tablet. At this time, please do not use ibuprofen (Motrin, Advil) or naproxen (Aleve) for pain management as you are using the Xarelto. When the Xarelto course is completed in 4 to 6 weeks, you could use ibuprofen or naproxen for pain management (if this is allowed by your primary care provider). Wear the EDILMA hose during the day and you may remove these at night. Elevate the limb to decrease swelling. Place ice to the area often. Place a towel between your skin and the blue pad. Use the incentive spirometer often. Take deep breaths throughout the day. Please keep the dressing in place until follow-up. Notify the Clinic if the dressing becomes saturated. Increase your protein intake while you are healing. Please closely monitor your blood sugars and notify your primary care provider with abnormal values. Elevated blood sugars increases the risk of infection. It is recommended you follow-up with your primary care provider to discuss having an evaluation for sleep apnea. PLEASE SCHEDULE an APPOINTMENT with your primary care provider. Call the Clinic with questions or concerns - [phone]. - Discharge Plan *PRESCRIPTION DRUG MONITORING PROGRAM REVIEWED*: No *COPY OF PRESCRIPTION DRUG MONITORING REPORT IN PATIENT DOROTHY: No Prescriptions/Med Rec: Acetaminophen/oxyCODONE [Percocet 325-5 MG] 1 - 2 tab PO Q4H PRN #60 tablet PRN Reason: Pain Cyclobenzaprine [Flexeril] 10 mg PO BID PRN #30 tablet PRN Reason: Spasms Rivaroxaban [Xarelto] 10 mg PO DAILY #40 Home Medications: Home Meds Potassium Chloride [K-Tab ER] 20 meq PO TID 10/07/14 [History] Spironolactone [Aldactone] 25 mg PO DAILY 10/07/14 [History] metOLazone [Metolazone] 5 mg PO DAILY 10/07/14 [History] metFORMIN HCl [Metformin HCl] 500 mg PO BID 07/24/16 [History] Cholecalciferol (Vitamin D3) [Vitamin D3] 5,000 unit PO DAILY 07/10/19 [History] Cranberry 500 mg PO DAILY 07/10/19 [History] Lidocaine/Prilocaine [Lidocaine-Prilocaine Cream] 1 dose TOP TID PRN 07/10/19 [ History] Acetaminophen/oxyCODONE [Percocet 325-5 MG] 1 - 2 tab PO Q4H PRN #60 tablet 01/24 [Rx] Cyclobenzaprine [Flexeril] 10 mg PO BID PRN #30 tablet 07/14/19 [Rx] Docusate Sodium [Colace] 100 mg PO BID cap 07/14/19 [Rx] Famotidine [Pepcid] 20 mg PO Q12H tablet 07/14/19 [Rx] Magnesium Hydroxide [Milk of Magnesia] 30 ml PO BID PRN cup 07/14/19 [Rx] Rivaroxaban [Xarelto] 10 mg PO DAILY #40 07/14/19 [Rx] Sennosides [Senna] 8.6 mg PO BID PRN tablet 07/14/19 [Rx] bisacodyL [Dulcolax] 5 mg PO DAILY PRN tablet 07/14/19 [Rx] Referrals: Catherine Bahena, QUE [Physician Pi/Senior Research Associate] - - Discharge Summary/Plan Comment DC Time >30 min.: No - Patient Data Vitals - Most Recent: Last Vital Signs Temp 97.6 F 07/13/19 14:40 Pulse 70 07/13/19 18:17 Resp 17 07/13/19 14:40 BP 114/69 07/13/19 18:17 Pulse Ox 100 07/13/19 18:17 Weight - Most Recent: 209 lb 6.4 oz I&O - Last 24 hours: Intake & Output 07/13/19 07/14/19 07/14/19 22:59 06:59 14:59 Intake Total 320 500 Output Total 225 Balance 320 275 Lab Results - Last 24 hrs: Laboratory Results - last 24 hr 07/13/19 07/13/19 07/14/19 Range/Units 10:45 10:46 00:00 WBC (3.98-10.04) K/mm3 RBC (3.98-5.22) M/mm3 Hgb (11.2-15.7) gm/dl Hct (34.1-44.9) % MCV (79.4-94.8) fl MCH (25.6-32.2) pg MCHC (32.2-35.5) g/dl RDW Std Deviation (36.4-46.3) fL Plt Count (182-369) K/mm3 MPV (9.4-12.3) fl APTT 23 (22-31) SECONDS Sodium (136-145) mEq/L Potassium (3.5-5.1) mEq/L Chloride (98-107) mEq/L Carbon Dioxide (21-32) mEq/L Anion Gap (5-15) BUN (7-18) mg/dL Creatinine (0.55-1.02) mg/dL Est Cr Clr Drug Dosing mL/min Estimated GFR (MDRD) (>60) mL/min BUN/Creatinine Ratio (14-18) Glucose (74-106) mg/dL POC Glucose 98 148 H (70-105) mg/dL Calcium (8.5-10.1) mg/dL Total Bilirubin (0.2-1.0) mg/dL AST (15-37) U/L ALT (14-59) U/L Alkaline Phosphatase (46-116) U/L Total Protein (6.4-8.2) g/dl Albumin (3.4-5.0) g/dl Globulin gm/dL Albumin/Globulin Ratio (1-2) 07/14/19 07/14/19 Range/Units 05:25 05:25 WBC 9.85 (3.98-10.04) K/mm3 RBC 4.22 (3.98-5.22) M/mm3 Hgb 13.0 (11.2-15.7) gm/dl Hct 39.9 (34.1-44.9) % MCV 94.5 (79.4-94.8) fl MCH 30.8 (25.6-32.2) pg MCHC 32.6 (32.2-35.5) g/dl RDW Std Deviation 44.3 (36.4-46.3) fL Plt Count 220 (182-369) K/mm3 MPV 10.4 (9.4-12.3) fl APTT (22-31) SECONDS Sodium 139 (136-145) mEq/L Potassium 4.0 (3.5-5.1) mEq/L Chloride 103 (98-107) mEq/L Carbon Dioxide 29 (21-32) mEq/L Anion Gap 11.0 (5-15) BUN 19 H (7-18) mg/dL Creatinine 1.0 (0.55-1.02) mg/dL Est Cr Clr Drug Dosing 59.51 mL/min Estimated GFR (MDRD) 58 (>60) mL/min BUN/Creatinine Ratio 19.0 H (14-18) Glucose 124 H (74-106) mg/dL POC Glucose (70-105) mg/dL Calcium 8.5 (8.5-10.1) mg/dL Total Bilirubin 0.4 (0.2-1.0) mg/dL AST 24 (15-37) U/L ALT 27 (14-59) U/L Alkaline Phosphatase 60 (46-116) U/L Total Protein 5.9 L (6.4-8.2) g/dl Albumin 3.1 L (3.4-5.0) g/dl Globulin 2.8 gm/dL Albumin/Globulin Ratio 1.1 (1-2) Med Orders - Current: Current Medications Bisacodyl (Dulcolax) 5 mg PO DAILY PRN PRN Reason: Constipation Cholecalciferol (Vitamin D3) 5,000 unit PO DAILY [facility] Cyclobenzaprine HCl (Flexeril) 10 mg PO TID PRN PRN Reason: Spasms Last Admin: 07/13/19 20:47 Dose: 10 mg Docusate Sodium (Colace) 100 mg PO BID ADAM Last Admin: 07/13/19 20:25 Dose: 100 mg Famotidine (Pepcid) 20 mg PO Q12H [facility] Cefazolin Sodium/Dextrose 2 gm (/ Premix) 50 mls @ 100 mls/hr IV Q8H [facility] Stop: 07/14/19 11:29 Last Admin: 07/14/19 03:47 Dose: 100 mls/hr Ketorolac Tromethamine (Toradol) 15 mg IVPUSH Q6H PRN PRN Reason: Pain Last Admin: 07/13/19 23:26 Dose: 15 mg Magnesium Hydroxide (Milk Of Magnesia) 30 ml PO BID PRN PRN Reason: Constipation Miscellaneous Information (Remove Patch) 0 ea TRDERM ONETIME ONE Stop: 07/16/19 15:46 Morphine Sulfate (Morphine) 2 mg IVPUSH Q2H PRN PRN Reason: Breakthrough Pain Naloxone HCl (Narcan) 0.1 mg IVPUSH Q5M PRN PRN Reason: Oversedation Ondansetron HCl (Zofran) 4 mg IVPUSH Q6H PRN PRN Reason: Nausea/Vomiting Oxycodone/Acetaminophen (Percocet 325-5 Mg) 1 - 2 tab PO Q4H PRN PRN Reason: Pain Last Admin: 07/13/19 17:10 Dose: 1 tab Lidocaine/Prilocaine (Cream) 0 each TOP TID PRN PRN Reason: Pain Potassium Chloride (Klor-Con M20) 20 meq PO TID [facility] Last Admin: 07/13/19 20:24 Dose: 20 meq Rivaroxaban (Xarelto) 10 mg PO DAILY [facility] Senna (Senna) 8.6 mg PO BID PRN PRN Reason: Constipation Discontinued Medications Acetaminophen (Tylenol) 975 mg PO ONETIME [facility] Stop: 07/13/19 12:00 Last Admin: 07/13/19 10:38 Dose: 975 mg Bupivacaine HCl (Sensorcaine-Mpf 0.25%) Confirm Administered Dose 30 ml .ROUTE .STK-MED ONE Stop: 07/13/19 11:02 Last Admin: 07/13/19 13:08 Dose: 30 ml Cefazolin Sodium (Ancef) Confirm Administered Dose 2 gm .ROUTE .STK-MED ONE Stop: 07/13/19 10:50 Last Admin: 07/13/19 13:05 Dose: 2 gm Cefazolin Sodium (Ancef) Confirm Administered Dose 2 gm .ROUTE .STK-MED ONE Stop: 07/13/19 11:02 Morphine Sulfate 8 mg/Epinephrine HCl 0.3 mg/Cefuroxime Sodium 750 mg/Ketorolac Tromethamine 30 mg/Sodium Chloride 27.9 ml 0 mg .XX ONETIME ONE Stop: 07/13/19 09:01 Last Admin: 07/13/19 13:08 Dose: 788.3 mg Famotidine (Pepcid) 20 mg PO Q12H [facility] Last Admin: 07/13/19 20:25 Dose: 20 mg Fentanyl (Sublimaze) Confirm Administered Dose 100 mcg .ROUTE .STK-MED ONE Stop: 07/13/19 10:50 Fentanyl (Sublimaze) 50 mcg IVPUSH Q5M PRN PRN Reason: pain Stop: 07/13/19 15:00 Lactated Ringer's (Ringers, Lactated) 1,000 mls @ 125 mls/hr IV ASDIRECTED [facility] Stop: 07/13/19 23:00 Last Admin: 07/13/19 11:13 Dose: 125 mls/hr Lactated Ringer's (Ringers, Lactated) Confirm Administered Dose 1,000 mls @ as directed .ROUTE .STK-MED ONE Stop: 07/13/19 10:50 Iodine (Iodine 2% Mild Tincture) Confirm Administered Dose 30 ml .ROUTE .STK- MED ONE Stop: 07/13/19 11:02 Last Admin: 07/13/19 13:03 Dose: 18 ml Ketorolac Tromethamine (Toradol) Confirm Administered Dose 30 mg .ROUTE .STK- MED ONE Stop: 07/13/19 10:50 Lidocaine/Sodium Bicarbonate (Buffered Lidocaine 1% In Ns 8.4%) 0.25 ml IDERM ONETIME PRN PRN Reason: Prior to IV Start Stop: 07/13/19 18:00 Last Admin: 07/13/19 11:13 Dose: 0.25 ml Midazolam HCl (Versed 1 Mg/Ml) Confirm Administered Dose 2 mg .ROUTE .STK-MED ONE Stop: 07/13/19 10:50 Midazolam HCl (Versed 1 Mg/Ml) Confirm Administered Dose 2 mg .ROUTE .STK-MED ONE Stop: 07/13/19 12:10 Ondansetron HCl (Zofran) Confirm Administered Dose 4 mg .ROUTE .STK-MED ONE Stop: 07/13/19 10:50 Oxycodone HCl (Oxycontin) 10 mg PO ONETIME [facility] Stop: 07/13/19 12:00 Last Admin: 07/13/19 10:38 Dose: 10 mg Phenylephrine HCl (Phenylephrine In Ns 100 Mcg/Ml) Confirm Administered Dose 1 mg .ROUTE .STK-MED ONE Stop: 07/13/19 12:53 Pregabalin (Lyrica) 50 mg PO ONETIME [facility] Stop: 07/13/19 12:00 Last Admin: 07/13/19 10:39 Dose: 50 mg Propofol (Diprivan 20 Ml) Confirm Administered Dose 600 mg .ROUTE .STK-MED ONE Stop: 07/13/19 10:50 Ropivacaine (Naropin 0.5%) Confirm Administered Dose 30 ml .ROUTE .STK-MED ONE Stop: 07/13/19 07:56 Scopolamine (Transderm-Scop) 1.5 mg TOP ONETIME ONE Stop: 07/13/19 15:36 Last Admin: 07/13/19 15:42 Dose: 1.5 mg Sodium Chloride (Saline Flush) 10 ml FLUSH ASDIRECTED PRN PRN Reason: Keep Vein Open Stop: 07/13/19 18:00 Tranexamic Acid (Cyklokapron) Confirm Administered Dose 1,000 mg .ROUTE .STK- MED ONE Stop: 07/13/19 11:02 Last Admin: 07/13/19 13:14 Dose: 1,000 mg Vancomycin HCl (Vancomycin) Confirm Administered Dose 1 gm .ROUTE .STK-MED ONE Stop: 07/13/19 11:02 Last Admin: 07/13/19 13:11 Dose: 1 gm
[2019-07-14] MEDS: Potassium Chloride 20 MEQ Tab.ER PO SCH (08:29)
[2019-07-14] MEDS: Docusate Sodium 100 MG Cap PO SCH (08:29)
[2019-07-14] MEDS: Cyclobenzaprine 10 MG Tab PO PRN (08:30)
[2019-07-14 08:58] VITALS: BP 101/58; PULSE 65
[2019-07-14] MEDS ORDERED: Rivaroxaban 10 MG Tab PO SCH (09:00)
[2019-07-14] MEDS ORDERED: Cholecalciferol (Vitamin D3) 5,000 UNIT Tab PO SCH (09:00)
[2019-07-14] MEDS ORDERED: Famotidine 10 MG Tab PO SCH (09:00)
--- NOTE | 2019-07-14 09:18 | PCM48HPAN ---
Post Anesthesia Note - EVALUATION WITHIN 48HRS OF ANESTHETIC Vital Signs in Normal Range: Yes Patient Participated in Evaluation: Yes Respiratory Function Stable: Yes Airway Patent: Yes Cardiovascular Function Stable: Yes Hydration Status Stable: Yes Pain Control Satisfactory: Yes Nausea and Vomiting Control Satisfactory: Yes (nausea last evening. none now and able to eat breakfast.) Mental Status Recovered: Yes Vital Signs: Last Vital Signs Temp 97.9 F 07/14/19 08:26 Pulse 54 L 07/14/19 08:28 Resp 14 07/14/19 08:26 BP 115/77 07/14/19 08:26 Pulse Ox 92 L 07/14/19 08:28
[2019-07-14] MEDS: Acetaminophen/oxyCODONE 325-5 MG Tab PO PRN (10:11)
--- NOTE | 2019-07-16 08:01 | PCM.OPNOTE ---
- General Post-Op/Procedure Note Date of Surgery/Procedure: 07/13/19 Operative Procedure(s): left total knee arthroplasty Pre Op Diagnosis: left knee osteoarthrosis Post-Op Diagnosis: Same Anesthesia Technique: Local, MAC, Spinal Primary Surgeon: Vargas Martinez Anesthesia Provider: Carla Covarrubias Warehouse Foreman: Catherine Bahena Warehouse Foreman: Maryjo Stone in mLs: 5 Condition: Good Free Text/Narrative:: 10/09 32x10 9mm
--- NOTE | 2019-07-16 08:42 | OR ---
DATE OF OPERATION: 07/13/2019 SURGEON: Vargas Martinez MD OPERATION PERFORMED: Left total knee arthroplasty. PREOPERATIVE DIAGNOSIS: Left knee osteoarthrosis. POSTOPERATIVE DIAGNOSIS: Left knee osteoarthrosis. ANESTHESIA: Local MAC with spinal. ANESTHESIA PROVIDER: Carla Covarrubias. ASSISTANTS: Catherine Bahena PA-C , and Maryjo Stone LPN. ESTIMATED BLOOD LOSS: 5 mL. COMPLICATIONS: None. CONDITION: Stable. IMPLANTS: 1. Roark size 4 cemented PS femur. 2. Patricia size 4 cemented [place] tibial base plate. 3. Roark size 32 x 10 mm cemented asymmetric patella. 4. Patricia size 9 mm TS polyethylene. DESCRIPTION OF PROCEDURE: The patient was identified in the preop holding area. Proper site was marked and identified by the surgeon. The patient was taken back to the operating theater. After adequate anesthesia, the patient's left lower extremity had a nonsterile tourniquet applied and it was sterilely prepped and draped in the usual sterile fashion. OR time-out was performed. The patient received 2 g IV Ancef. At this time, the left lower extremity was exsanguinated. Tourniquet was insufflated to 300 mmHg. Standard medial parapatellar incision was made. Medial parapatellar arthrotomy was created. Deep fibers of the MCL were raised and anterior fat pad was resected. At this time, attention was turned to the patella. Patella measured a 23, it was resected to a 13 for 32 x 10 mm patella. Drill holes were then drilled and found to be in adequate position. The drill was then drilled in the distal femur and the intramedullary distal femoral cutting guide was then placed. An 8 mm was resected off the distal femur and was found to be an adequate resection. Sizing guide was placed. It was found to be a size 4 cemented PS femur that was shown on the implant record at the beginning of this dictation. The drill holes were drilled for the epicondylar axis using [place] line and epicondyles as reference. At this time, the 4-in - 1 cutting block was placed. An anterior posterior and anterior and posterior chamfer cuts were then completed. Box cut was completed at this time. Attention was turned to the tibia. The posterior medial lateral retractors were placed. The extramedullary tibial guide was placed. It was placed in the old footprint of the ACL. It was aligned with the center of the ankle and 0 degrees of slope, 9 mm was then resected off the unaffected side. There was found to be an acceptable reduction. At this time, posterior osteophytes were removed along with medial and lateral meniscus. A trial implant was placed with a correct sized tibia that was mentioned at the beginning of the dictation. A Patricia size 9 mm TS polyethylene insert was then placed. The patient's knee was brought through range of motion. The patella was tracking centrally and was stable to varus and valgus stress. Alignment was found to be roughly at 0 degrees. The tibia was stamped and drilled in proper rotation. The universal tibial base plate was impacted in place. Next, the Patricia size 4 cemented PS femur impacted into place and the Roark size 9 mm TS polyethylene insert was placed. The patient's knee was brought into full extension. The patella was then cemented in place at this time. One liter dilute Betadine solution was irrigated through the knee along with 3 L of pulse lavage irrigation with Ancef. Periarticular injection was then completed. The patient's knee was brought through a range of motion. Once the cement had time to set up and it was found to be stable to varus valgus stress, the patella was tracking centrally with full range of motion. At this time, a #2 barbed suture was used for closure of the medial parapatellar arthrotomy. Topical tranexamic acid was placed. 2-0 Vicryl was used subcutaneously, Prineo was used for the skin. The patient tolerated the procedure well and was sent to the PACU in stable condition. MMODAL /[id number] MTDD
== END 2019-07-14 11:48 | disposition home or self-care (01) | DRG 470 ==
LOC: JD.MS 09:59 → EDSTATUS 12:30
PROVIDERS: ADMIT Orthopaedic Surgery; ATTEND Orthopaedic Surgery
PROC: 0SRD0J9 Replacement of Left Knee Joint with Synthetic Substitute, Cemented, Open Approach (ICD-10-PCS; principal; 2019-07-13)
DX: M17.12 Unilateral primary osteoarthritis, left knee (principal); G90.513 Complex regional pain syndrome I of upper limb, bilateral; E66.9 Obesity, unspecified; G47.00 Insomnia, unspecified; G89.4 Chronic pain syndrome; I10 Essential (primary) hypertension; J30.9 Allergic rhinitis, unspecified; G25.81 Restless legs syndrome; E87.6 Hypokalemia; E11.42 Type 2 diabetes mellitus with diabetic polyneuropathy; R41.3 Other amnesia; Z87.440 Personal history of urinary (tract) infections; Z79.899 Other long term (current) drug therapy; Z86.718 Personal history of other venous thrombosis and embolism; Z98.890 Other specified postprocedural states; Z90.710 Acquired absence of both cervix and uterus; Z90.49 Acquired absence of other specified parts of digestive tract; Z79.84 Long term (current) use of oral hypoglycemic drugs; Z68.33 Body mass index [BMI] 33.0-33.9, adult
CPT/HCPCS: 01402; 36415; 64450; 73560-26-LT; 73560-LT; 80053; 82962; 85027; 85730; 94760; 97110-GP; 97116-GP; 97161-GP; 97165-GO; 97535-GO; 99222; 99232; A9270-GY; C1713; C1776; J0171; J0690; J0697; J1885; J2250; J2270; J2370; J2405; J2704; J2795; J3010; J3370; J3490; J7120

== ENCOUNTER 2020-11-17 07:31 | Day surgery (SDC) | payer OTHER, BC ==
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
[~2020-11-17 07:31] MED LIST changes: -Acetaminophen 325 MG Tab PO SCH; -Bisacodyl 5 MG Tab PO PRN; +Lidocaine 1% 4 ML ONE; +Midazolam 1 MG/ML 2 ML SDV ONE; -Morphine 2 MG/ML SYRINGE IVPUSH PRN; -Morphine 8 MG, EPINEPHrine 0.3 MG, Cefuroxime 750 MG, Ketorolac 30 MG, Sodium Chloride ... ONE; -Naloxone 0.4 MG/ML SDV IVPUSH PRN; -Ondansetron 4 MG/2 ML SDV IVPUSH PRN; -Pregabalin 25 MG Cap PO SCH; +Propofol 200 MG/20 ML SDV ONE; -Ropivacaine 0.5% 5 MG/ML 30 ML SDV ONE; +ceFAZolin 1 GM Vial ONE; +fentaNYL 100 MCG/2 ML SDV ONE; -oxyCODONE ER 10 MG TAB.ER PO SCH
[2020-11-17] MEDS ORDERED: Bupivacaine 0.25% 10 ML SDV ONE (07:32)
[2020-11-17] MEDS ORDERED: Lidocaine 1% 30 ML SDV ONE (07:33)
[2020-11-17] MEDS ORDERED: Ondansetron 4 MG/2 ML SDV ONE (08:32)
[2020-11-17] MEDS ORDERED: Ondansetron 4 MG/2 ML SDV IVPUSH PRN (08:38)
[2020-11-17] MEDS ORDERED: fentaNYL 100 MCG/2 ML SDV IVPUSH PRN (08:38)
[2020-11-17] MEDS ORDERED: HYDROmorphone 0.5 MG/0.5 ML Syringe IVPUSH PRN (08:38)
[2020-11-17] MEDS ORDERED: Midazolam 1 MG/ML 2 ML SDV IVPUSH PRN (08:38)
--- NOTE | 2020-11-17 09:06 | PCM48HPAN ---
Post Anesthesia Note - EVALUATION WITHIN 48HRS OF ANESTHETIC Vital Signs in Normal Range: Yes Patient Participated in Evaluation: Yes Respiratory Function Stable: Yes Airway Patent: Yes Cardiovascular Function Stable: Yes Hydration Status Stable: Yes Pain Control Satisfactory: Yes Nausea and Vomiting Control Satisfactory: Yes Mental Status Recovered: Yes Vital Signs: Last Vital Signs Temp 36.6 C 11/17/20 07:10 Pulse 73 11/17/20 07:10 Resp 17 11/17/20 07:10 BP 129/77 11/17/20 07:10 Pulse Ox 99 11/17/20 07:10
[2020-11-17 09:35] VITALS: PULSE 64
[2020-11-17 10:12] VITALS: BP 132/65
--- NOTE | 2020-11-17 16:07 | PCM.OPNOTE ---
- General Post-Op/Procedure Note Date of Surgery/Procedure: 11/17/20 Operative Procedure(s): left carpal tunnel release Pre Op Diagnosis: left median nerve compression neuropathy Post-Op Diagnosis: Same Anesthesia Technique: Local, MAC Primary Surgeon: Vargas Martinez Anesthesia Provider: Caridad Schreiber Stuffing Machine Operator: Maryjo Stone EBEddie in mLs: 5 Complications: None Condition: Good Free Text/Narrative:: Intake & Output 11/17/20 11/17/20 11/17/20 06:59 14:59 22:59 Intake Total 250 Balance 250
--- NOTE | 2020-11-17 16:24 | OR ---
DATE OF OPERATION: 11/17/2020 SURGEON: Vargas Martinez MD OPERATION PERFORMED: Left carpal tunnel release. PREOPERATIVE DIAGNOSIS: Left median nerve compression neuropathy. POSTOPERATIVE DIAGNOSIS: Left median nerve compression neuropathy. ANESTHESIA: Local MAC. ANESTHESIA PROVIDER: Caridad Schreiber CRNA MEDICAL SERVICES ASSISTANT: Maryjo Stone LPN. ESTIMATED BLOOD LOSS: Less than 5 mL. COMPLICATIONS: None. CONDITION: Stable. DESCRIPTION OF PROCEDURE: The patient was identified in the preop holding area. Proper site was marked and identified by the surgeon. The patient was taken back to the operating theater where after adequate anesthesia, the patient's left upper extremity was sterilely prepped and draped in the usual sterile fashion. OR time-out was performed. The patient did not receive antibiotics and it is not indicated for soft tissue hand procedure. At this time, the left upper extremity was exsanguinated and an Esmarch was used as a tourniquet on the forearm. At this time, using 1% lidocaine without epinephrine and 0.25% Marcaine without epinephrine, the palmar cutaneous branch of the median nerve was anesthetized and then the incisional site was anesthetized using Hoyt cardinal line and ulnar border of the fourth digit as reference. Once this had set up, an incision was made. Blunt dissection was taken down to the palmar cutaneous fascia. Palmar cutaneous fascia was incised with a Calhoun blade. At this time, the transverse carpal ligament was identified. A small rent was made in the transverse carpal ligament with a Calhoun blade under direct visualization. Resection of the transverse carpal ligament was done distally using tenotomy scissors making sure to stop short of the palmar arch. At this time, attention was turned proximally after it was found to be adequately released. Using the tenotomy scissors keeping the tips ulnar to protect the palmar cutaneous branch of the median nerve, the superficial forearm fascia as well as the transverse carpal ligament were resected proximally. It was found to be adequate release both proximally and distally. At this time, adequate saline was irrigated through the wound. 4-0 nylon sutures were used closure of the skin. The patient was placed in a sterile soft dressing and sent to PACU in stable condition. MMODAL /[id number]
== END 2020-11-17 10:23 | disposition home or self-care (01) ==
LOC: JD.SDS 07:31
PROVIDERS: ATTEND Orthopaedic Surgery
DX: G56.12 Other lesions of median nerve, left upper limb (principal); G56.02 Carpal tunnel syndrome, left upper limb; E66.9 Obesity, unspecified; R53.83 Other fatigue; I10 Essential (primary) hypertension; G89.29 Other chronic pain; Z79.899 Other long term (current) drug therapy; Z98.890 Other specified postprocedural states; Z90.49 Acquired absence of other specified parts of digestive tract; Z68.31 Body mass index [BMI] 31.0-31.9, adult
CPT/HCPCS: 01810; J0690; J2250; J2405; J2704; J3010; J3490; J7120